=== PATIENT | female | born 1970 | race Caucasian/White ===

== ENCOUNTER 2022-07-05 19:02 | Emergency (ER) | payer BC ==
--- OUTSIDE RECORDS SUMMARY | 2022-07-05 19:05 | XMS REPORT | Continuity of Care Document ---
:1970 Author Organization [facility] t Address [address] [place] [address] [place] [id number] Care Team Providers Name Role Phone Kvng Mercer MD Primary Care Physician KVNG MERCER Attending Clinician Unavailable Doctor Unassigned, Regan Attending Clinician Unavailable Payers Payer Name Policy Type Policy Number Effective Date Expiration Date [facility] [id number] 2018 00:00:00 Problems Condition Condition Condition Status Onset Resolution Last Treating Co mments Source Name Details Category Date Date Treatment Clinician Date Elevated Elevated Disease Active Unive rs liver liver 3-13 ity of enzymes enzymes 00:00: [place] 00 Medical Branch Type 2 Type 2 Disease Active Univers diabetes diabetes 3-13 ity of mellitus mellitus 00:00: [place] without without 00 Medical complicati complicati Br anch on, on, without without long-term long-term current current use of use of insulin insulin Allergies, Adverse Reactions, Alerts Allergy Allergy Status Severity Reaction(s) Onset Inactive Treating Comm ents Source Name Type Date Date Clinician NO KNOWN Drug Active Univers ALLERGIE Class ity of S [facility] Social History Social Habit Start Date Stop Date Quantity Comments Source Exposure to 2022-06-14 2022-06-24 Not sure University of SARS-CoV-2 00:00:00 08:42:00 [facility] (event) [place] Tobacco use and 2022-06-24 2022-06-24 Smokeless tobacco Un iversity of exposure 00:00:00 00:00:00 non-user [place] [facility] Alcohol intake 2022-06-24 2022-06-24 .29 /d University of 00:00:00 00:00:00 [facility] Alcohol Comment 2022-06-24 2022-06-24 occasionally, [place] sity of 00:00:00 00:00:00 tony [facility] Sex Ass[birth year] Universit y of 00:00:00 00:00:00 [facility] Smoking Status Start Date Stop Date Source Tobacco smoking consumption Univ [facility] unknown Branch Never smoked tobacco [facility] Medications Ordered Filled Start Stop Current Ordering Indication Dosage Frequency Signature Comments Components Source Medication Medication Date Date Medication? Clinician (SIG) Name Name rosuvastati 2022- No 10mg Take 1 Uni vers n 10 mg 3-13 -13 tablet by ity of tablet 09:27: 00:00 mouth at [place] 13 :00 bedtime. Medical Branch rosuvastati No 10mg Take 1 Uni vers n 10 mg 3-13 06-24 tablet by ity of tablet 09:27: 00:00 mouth at [place] 13 :00 bedtime. Medical Branch doxylamine Yes Take by Univ ers succinate 3-13 mouth. ity of (UNISOM, 08:55: [place] DOXYLAMINE, 52 Medical ORAL) Branch MELATONIN Yes Take by Unive rs ORAL 3-13 mouth. ity of 08:55: [address] Branch doxylamine Yes Take by Univ ers succinate 3-13 mouth. ity of (UNISOM, 08:55: [place] DOXYLAMINE, 52 Medical ORAL) Branch MELATONIN Yes Take by Unive rs ORAL 3-13 mouth. ity of 08:55: [place] [address] Medical Branch doxylamine Yes Take by Univ ers succinate 3-13 mouth. ity of (UNISOM, 08:55: [place] DOXYLAMINE, 52 Medical ORAL) Branch MELATONIN Yes Take by Unive rs ORAL 3-13 mouth. ity of 08:55: [place] [address] Medical Branch escitalopra Yes [id number] 20mg Take 1 Univers m oxalate 3-13 tablet by ity o f 20 mg 00:00: mouth in [place] tablet 00 the Medical morning. Branch rosuvastati Yes [id number] 10mg Take 1 Univers n 10 mg 3-13 tablet by ity of tablet 00:00: mouth at [place] 00 bedtime. Medical Branch escitalopra Yes [id number] 20mg Take 1 Univers m oxalate 3-13 tablet by ity o f 20 mg 00:00: mouth in [place] tablet 00 the Medical morning. Branch rosuvastati Yes [id number] 10mg Take 1 Univers n 10 mg 3-13 tablet by ity of tablet 00:00: mouth at [place] 00 bedtime. Medical Branch escitalopra Yes [id number] 20mg Take 1 Univers m oxalate 3-13 tablet by ity o f 20 mg 00:00: mouth in [place] tablet 00 the Medical morning. Branch rosuvastati Yes [id number] 10mg Take 1 Univers n 10 mg 3-13 tablet by ity of tablet 00:00: mouth at [place] 00 bedtime. Medical Branch escitalopra 2021-04- No 20mg Take 1 Uni vers m oxalate 2-23 03-13 tablet by ity of 20 mg 00:00: 00:00 mouth in [place] tablet 00 :00 the Medical morning. Branch escitalopra 2021-04- No 20mg Take 1 Uni vers m oxalate 2-23 03-13 tablet by ity of 20 mg 00:00: 00:00 mouth in [place] tablet 00 :00 the Medical morning. Branch Vital Signs Vital Name Observation Time Observation Value Comments Source Systolic blood 2022-06-24 13:56:00 117 mm[Hg[facility] pressure [facility] Branch Diastolic blood 2022-06-24 13:56:00 64 mm[Hg] [facility] pressure [facility] Heart rate 2022-06-24 13:56:00 77 /min [facility] Body height 2022-06-24 13:56:00 162.6 cm [facility] Body weight 2022-06-24 13:56:00 53.933 kg [facility] BMI 2022-06-24 13:56:00 20.41 kg/m2 [facility] Oxygen saturation 2022-06-24 13:56:00 100 /min Uni [facility] in Arterial blood Medical Br anch by Pulse oximetry Procedures Procedure Date / Time Performed Performing Clinician [facility] e ASSIGNMENT OF BENEFITS 2022-06-24 13:43:49 Doctor Laurel, Jackie [facility] Encounters Start End Encounter Admission Attending Care Care Encounter Source Date/Time Date/Time Type Type Clinicians Facility Department ID 2022-09-24 2022-09-24 [facility] [id number] Univers 09:40:00 09:40:00 [facility] 2022-07-03 2022-07-03 Telephone [facility] [id number] Univers 00:00:00 00:00:00 [facility] [id number] ity of [place] [id number] Sumit as ADRIENNE?BLEA [id number] [address] MEDICAL OFFICE BUILDING 2022-06-24 2022-06-24 [facility] [id number] Univers 08:40:00 09:33:22 [facility] 2022-06-24 2022-06-24 Office [facility] [id number] Univers 08:40:00 09:33:22 Visit [facility] [id number] ity of [place] [id number] Sumit as ADRIENNE?BLEA [id number] [address] MEDICAL OFFICE BUILDING 2022-06-24 2022-06-24 Orders Doctor PINA [id number] Univers 00:00:00 00:00:00 Only Unassigned, CARLIN [id number] ity of [place] [facility] [id number] Sumit as [id number] [place] [address] Branch Results This patient has no known results.
[2022-07-05] MEDS ORDERED: HYDROCODONE/APAP 7.5/325 MG TAB ONE (19:32)
[2022-07-05] MEDS ORDERED: IBUPROFEN 400 MG TAB ONE (19:32)
--- NOTE | 2022-07-05 21:01 | RAD REPORT ---
EXAM DESCRIPTION: Ca Garcia Left07/05/2022 8:43 pm CLINICAL HISTORY: Left leg pain status post injury FINDINGS: No fracture is seen
--- NOTE | 2022-07-05 21:26 | ER ---
Nurse's Notes [facility] Name: Francine Lomeli Age: 52 yrs Sex: Female : 1970 Arrival Date: 07/05/2022 Time: 19:06 Bed 10 Private MD: Diagnosis: Contusion of left lower leg;Abrasion of lower leg Presentation: 07/05 19:15 Chief complaint: Patient states: I was mowing and i my left leg got hung up between the kd3 handle and the mower and it really hurt the muscle. It pulled real hard. I don't think it is broken but i'm not sure if it is ok. Coronavirus screen: Vaccine status: Patient reports being unvaccinated. Ebola Screen: No symptoms or risks identified at this time. Initial Sepsis Screen: Does the patient meet any 2 criteria? No. Patient's initial sepsis screen is negative. Does the patient have a suspected source of infection? No. Patient's initial sepsis screen is negative. Risk Assessment: Do you want to hurt yourself or someone else? Patient reports no desire to harm self or others. Onset of symptoms was July 05, 2022. 19:15 Method Of Arrival: Wheelchair kd3 19:15 Acuity: ARTEM 3 kd3 Triage Assessment: 19:18 General: Appears in no apparent distress. Behavior is calm, cooperative. Pain: kd3 Complains of pain in lateral aspect of left calf, left calf, medial aspect of left calf and left saucedo. Musculoskeletal: Circulation, motion, and sensation intact. Swelling present in medial aspect of left calf. Injury Description: Abrasion sustained to medial aspect of left calf Bruise sustained to medial aspect of left calf. 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 - Social history:: Smoking status: Patient denies any tobacco usage or history of. Screenin:37 [facility] ED Fall Risk Assessment (Adult) History of falling in the last 3 months, aa9 including since admission Yes- single mechanical fall (1 pt) Confusion or Disorientation No (0 pts) Intoxicated or Sedated No (0 pts) Impaired Gait No (0 pts) Mobility Assist Device Used No (0 pt) Altered Elimination No (0 pt) Score/Fall Risk Level 0 - 2 = Low Risk Oriented to surroundings, Maintained a safe environment. Abuse screen: Denies threats or abuse. Denies injuries from another. Nutritional screening: No deficits noted. Tuberculosis screening: No symptoms or risk factors identified. Assessment: 19:32 General: Appears in no apparent distress. comfortable, slender, Behavior is calm, aa9 cooperative. Pain: Complains of pain in lateral aspect of left calf Pain currently is 7 out of 10 on a pain scale. Derm: Wound noted lateral aspect of left calf Wound is abrasion Bruising that is bright red, on lateral aspect of left calf. 20:58 Reassessment: Patient appears in no apparent distress at this time. Patient is alert, aa9 oriented x 3, equal unlabored respirations, skin warm/dry/pink. pt used wheelchair to go to the bathroom Patient states symptoms have improved. 21:21 Reassessment: Patient appears in no apparent distress at this time. Patient is alert, aa9 oriented x 3, equal unlabored respirations, skin warm/dry/pink. Patient states symptoms have improved. Vital Signs: 19:15 BP 152 / 54; Pulse 71; Resp 19; Temp 98.2; Pulse Ox 99% ; Weight 53.07 kg; Height 5 ft. kd3 4 in. ; Pain 8/10; 19:15 Body Mass Index 20.08 (53.07 kg, 162.56 cm) kd3 19:15 Pain Scale: Adult kd3 ED Course: 19:06 Patient arrived in ED. ja2 19:12 [facility]rozco [facility]C [facility] kb 19:12 Ricky Mancia MD is Attending Physician. kb 19:18 Triage completed. kd3 19:18 Arm band placed on right wrist. kd3 19:37 Patient has correct armband on for positive identification. Call light in reach. Adult aa9 w/ patient. 20:41 Vielka Rogers, RN is Primary Nurse. aa9 20:45 Tib Fib Left XRAY In Process Unspecified. EDMS 21:21 No provider procedures requiring assistance completed. Patient did not have IV access aa9 during this emergency room visit. Administered Medications: 19:32 Drug: Ibuprofen PO 400 mg Route: PO; aa9 21:20 Follow up: Response: No adverse reaction aa9 19:32 Drug: Hydrocodone-Acetaminophen PO (7.5 mg-325 mg) 1 tabs Route: PO; aa9 21:06 Follow up: Response: No adverse reaction; Pain is decreased aa9 21:06 Follow up: Response: No adverse reaction; Pain is decreased aa9 Medication: 21:21 VIS not applicable for this client. aa9 Outcome: 21:04 Discharge ordered by . ruben 21:21 Discharged to home via wheelchair, with family. aa9 21:21 Condition: stable 21:21 Discharge instructions given to patient, Instructed on discharge instructions, follow up and referral plans. medication usage, Demonstrated understanding of instructions, follow-up care, medications, Prescriptions given X 2. 21:21 Patient left the ED. aa9 Signatures: Dispatcher [employer] EDBritany Green, POLISHER ALUMINUM-C POLISHER ALUMINUM-Berna Daniel Kyli, RN RN kd3 Vielka Rogers RN RN aa9
--- NOTE | 2022-07-05 21:26 | EDPHYS ---
Physician Documentation [facility] Name: Francine Lomeli Age: 52 yrs Sex: Female : 1970 Arrival Date: 07/05/2022 Time: 19:06 Bed 10 Private MD: ED Physician Ricky Mancia HPI: 07/05 20:40 This 52 yrs old Female presents to ER via Wheelchair with complaints of Leg Injury. kb 20:40 The patient presents with an abrasion, a contusion, an injury, pain, swelling, kb tenderness. The complaints affect the medial aspect of left calf. Context: resulted from a crush injury, between the lawnmower handle and tree, the patient can fully bear weight, the patient is able to ambulate. Onset: The symptoms/episode began/occurred just prior to arrival. Modifying factors: The symptoms are alleviated by nothing. the symptoms are aggravated by movement, weight bearing. Associated signs and symptoms: Pertinent positives: swelling, Pertinent negatives calf tenderness, fever, nausea, numbness, rash, tingling, vomiting, warmth, weakness. Treatment prior to arrival includes: no previous treatment. Severity of symptoms: At their worst the symptoms were moderate, in the emergency department the symptoms are unchanged. The patient has not experienced similar symptoms in the past. The patient has not recently seen a physician. 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 - Social history:: Smoking status: Patient denies any tobacco usage or history of. ROS: 20:39 Constitutional: Negative for fever, chills, and weight loss. kb 20:39 MS/extremity: Positive for abrasion, contusion, ecchymosis, pain, of the medial aspect of left calf. 20:39 All other systems are negative. Exam: 20:39 Constitutional: This is a well developed, well nourished patient who is awake, alert, kb and in no acute distress. Head/Face: Normocephalic, atraumatic. ENT: Moist Mucous membranes Cardiovascular: Regular rate and rhythm with a normal S1 and S2. No gallops, murmurs, or rubs. No pulse deficits. Respiratory: Respirations even and unlabored. No increased work of breathing. Talking in full sentences Neuro: Awake and alert, GCS 15, oriented to person, place, time, and situation. Moves all extremities. Normal gait. Psych: Awake, alert, with orientation to person, place and time. Behavior, mood, and affect are within normal limits. 20:39 Musculoskeletal/extremity: Extremities: grossly normal except: noted in the medial aspect of left calf: abrasion, contusion, ecchymosis, pain, swelling, tenderness, ROM: intact in all extremities, Circulation is intact in all extremities. Sensation intact. Weight bearing: able to fully bear weight. 20:39 Skin: injury, abrasion(s), small abrasion noted, moderate sized abrasion noted, of the medial aspect of left calf. Vital Signs: 19:15 BP 152 / 54; Pulse 71; Resp 19; Temp 98.2; Pulse Ox 99% ; Weight 53.07 kg; Height 5 ft. kd3 4 in. ; Pain 8/10; 19:15 Body Mass Index 20.08 (53.07 kg, 162.56 cm) kd3 19:15 Pain Scale: Adult kd3 MDM: 19:13 Patient medically screened. kb 20:38 Differential diagnosis: dislocation, closed fracture, contusion. Data reviewed: vital kb signs, nurses notes. Independent interpretation of the following test(s) in the Emergency Department X-Ray: My interpretation is tib/fib x-ray reviewed by me - no fracture. Counseling: I had a detailed discussion with the patient and/or guardian regarding: the historical points, exam findings, and any diagnostic results supporting the discharge/admit diagnosis, radiology results, the need for outpatient follow up, a family practitioner, a orthopedic surgeon, to return to the emergency department if symptoms worsen or persist or if there are any questions or concerns that arise at home. 07/05 19: Order name: Tib Fib Left XRAY kb 07/05 18: Order name: Ice pack; Complete Time: 19:32 kb 07/05 21:04 Order name: Fletcher Wrap; Complete Time: 21:20 kb 07/05 21:04 Order name: Wound Care; Complete Time: 21:20 kb Administered Medications: :32 Drug: Ibuprofen PO 400 mg Route: PO; aa9 21:20 Follow up: Response: No adverse reaction aa9 19:32 Drug: Hydrocodone-Acetaminophen PO (7.5 mg-325 mg) 1 tabs Route: PO; aa9 21:06 Follow up: Response: No adverse reaction; Pain is decreased aa9 21:06 Follow up: Response: No adverse reaction; Pain is decreased aa9 Disposition: 07/06 07:15 Co-signature as Attending Physician, Ricky Mancia MD I reviewed the patient's care sp4 provided by the Advanced Practice Provider and agree with the diagnosis and treatment plan. Disposition Summary: 07/05/22 21:04 Discharge Ordered Location: Home kb Condition: Stable kb Diagnosis - Contusion of left lower leg kb - Abrasion of lower leg kb Followup: kb - With: Emergency Department - When: As needed - Reason: Worsening of condition Followup: kb - With: Private Physician - When: 2 - 3 days - Reason: Recheck today's complaints, Continuance of care, Re-evaluation by your physician Discharge Instructions: - Discharge Summary Sheet kb - Contusion, [id number] kb - Abrasion, [id number] kb Forms: - Medication Reconciliation Form kb - Thank You Letter kb - Antibiotic Education kb - Prescription Opioid Use kb Prescriptions: - Diclofenac Sodium 75 mg Oral tablet,delayed release (DR/EC) - take 1 tablet by ORAL route 2 times per day As needed; 30 tablet; Refills: 0, kb Product Selection Permitted - orphenadrine citrate 100 mg Oral Tablet Sustained Release - take 1 tablet by ORAL route 2 times per day As needed; 20 tablet; Refills: 0, kb Product Selection Permitted Signatures: Dispatcher [employer] Britany Jay FNP-C FNP-Kiah Giordano RN RN kd3 Vielka Rogers RN RN aa9 Ricky Mancia MD MD sp4
[2022-07-05 22:07] VITALS: BP 152/54; TEMP 98.2; O2SAT 99
== END 2022-07-05 21:21 | disposition home or self-care (01) ==
LOC: ER 19:02
DX: S80.812A Abrasion, left lower leg, initial encounter (principal); S80.12XA Contusion of left lower leg, initial encounter
CPT/HCPCS: 99283